=== PATIENT | male | born 1965 | race Caucasian/White ===

== ENCOUNTER 2017-11-12 14:57 | Emergency (ER) | payer OTHER ==
[~2017-11-12] VITALS: Ht 193 cm; Wt 104.5 kg
[2017-11-12 14:58] VITALS: BP 198/117; PULSE 84; RESP 20; TEMP 98.8; O2SAT 98
[2017-11-12] MEDS ORDERED: TYLE325T PO (17:10)
[2017-11-12] MEDS ORDERED: CLINDAMYCIN 150 MG CAP PO ONE (17:15)
[2017-11-12] MEDS ORDERED: ACETAMINOPHEN/HYDROcodone 325 MG/5 MG TAB PO ONE (17:15)
--- NOTE | 2017-11-12 17:41 | RADRPT ---
EXAM DATE/TIME: 11/12/2017 17:25 [place] COMPARISON: No previous studies available for comparison. INDICATIONS : Right hand, 1st digit pain, foreign body, possible splinter. MEDICAL HISTORY : None. SURGICAL HISTORY : None. ENCOUNTER: Initial ACUITY: 1 day PAIN SCORE: 10/10 LOCATION: Right hand, 1st digit. FINDINGS: Examination of the first digit of the right hand demonstrates no evidence of fracture or dislocation. No radiopaque foreign bodies are seen. There is mild soft tissue swelling and apparent gas with no radiopaque foreign body. CONCLUSION: Soft tissue swelling and small area of apparent gas with no radiopaque foreign body. Milton Stringer MD on November 12, 2017 at 17:38 Board Certified Radiologist. This report was verified electronically.
[2017-11-12] MEDS ORDERED: CIPR-9 PO (17:58)
[2017-11-12] MEDS ORDERED: CLIN300C5 PO (17:58)
[2017-11-12] MEDS ORDERED: NORC5TAB PO (17:59)
--- NOTE | 2017-11-12 17:59 | PD ---
HPI Chief Complaint: Skin Problem Time Seen by Provider: 17:08 Travel History International Travel<30 days: No Contact w/Intl Traveler<30days: No History of Present Illness HPI This is a 51-year-old male here with right thumb pain and swelling after sustaining a puncture wound by a piece of wood 6 days ago. It was a board of pressure-treated wood. He reports the area has become increasingly more painful and swollen prompting his visit today. No fever chills. No paresthesias or weakness of the digit. He has full range of motion. He reports he pulled out 2 linear pieces of wood from his thumb. He does not believe that there is a retained foreign body. The severity is moderate. No aggravating or alleviating factors. PFSH Past Medical History Medical History: Denies Significant Hx Social History Tobacco Use: No Allergies-Medications (Allergen,Severity, Reaction): Coded Allergies: No Known Allergies (Verified Allergy, Unknown, 11/12/17) Reported Meds & Prescriptions Reported Meds & Active Scripts Active Woodbridge (Hydrocodone-Acetaminophen) 5 Mg-325 Mg Tab 1 Tab PO Q6H PRN Cipro (Ciprofloxacin HCl) 500 Mg Tab 500 Mg PO BID 10 Days Clindamycin (Clindamycin HCl) 300 Mg Cap 300 Mg PO Q6H Reported Tylenol (Acetaminophen) 325 Mg Tab 325 Mg PO ONCE Review of Systems Except as stated in HPI: all other systems reviewed are Neg General / Constitutional: No: Fever Physical Exam Narrative GENERAL: Alert and well-appearing 51-year-old male SKIN: Warm and dry. HEAD: Normocephalic. EYES: No injection or drainage. NECK: Supple CARDIOVASCULAR: Regular rate and rhythm RESPIRATORY: Breath sounds equal bilaterally. No accessory muscle use. MUSCULOSKELETAL: No cyanosis. Right thumb: Distal aspect of the thumb appears swollen. 2 puncture wounds noted to the finger pad at the distal aspect. The most distal puncture wound has small scab with what appears to be purulent drainage underneath. Patient has full range of motion of thumb. The swelling and erythema is isolated to the distal aspect of the thumb exclusively. Normal sensation. Brisk cap refill. Data Data Last Documented VS Vital Signs Date Time Temp Pulse Resp B/P (MAP) Pulse Ox O2 Delivery O2 Flow Rate FiO2 11/12/17 18:27 16 11/12/17 14:58 98.8 84 198/117 (144) 98 Room Air Orders Orders Finger ([id number]) (11/12/17 ) Clindamycin (Cleocin) (11/12/17 17:15) Acetamin-Hydrocod 325-5 Mg ([place] 5-325 (11/12/17 17:15) Ed Discharge Order (11/12/17 18:01) MDM Medical Decision Making Medical Screen Exam Complete: Yes Emergency Medical Condition: Yes Interpretation(s) X-ray of right thumb: No evidence of osteomyelitis. No radiopaque foreign body. Possible gas (the area of supposed gas is superficial at the site of the incision I made to remove the splinter, I do not believe this is true gas. This is air from the incision I made) Differential Diagnosis Soft tissue foreign Body, felon, cellulitis Narrative Course This is a 51-year-old male here with right thumb pain and swelling after sustaining a puncture wound by a piece of wood 6 days ago. He reports the area has become increasingly more painful and swollen prompting his visit today. No fever chills. He reports he pulled out 2 linear pieces of wood from a pressure- treated board he was working with. He does not believe that there is a retained foreign body. On exam he has 2 puncture wounds. An area on the distal aspect of the thumb had small amount of fluctuant with a central scab. Incision and drainage performed. Small particle of wood fragment removed with a small amount of drainage. X-ray was obtained that showed possible gas formation although the area where gas is seen in the soft tissue is the site of the incision and is superficial. I do not suspect this is true gas. This is air from where I incised and explored the wound for foreign body. She will be put on both clindamycin and Cipro. He is referred to on-call hand surgeon Dr. Faith for follow-up tomorrow. He was instructed to return if he cannot be seen by her or if he develops new or worsening symptoms. Procedures Procedure Narrative INCISION AND DRAINAGE OF ABSCESS: The area was prepped and was sterilely draped. A subcutaneous wheal of 1 % Xylocaine was used to anesthetize the area properly. A number [11] scalpel was used to make a [2] -mm incision across the area of the abscess. The abscess was drained. Small fragment of wood particle removed. Sterile dressing placed. Patient tolerated procedure well. The extremity remains neurovascular intact post procedure. Diagnosis Primary Impression: Puncture wound of right hand with infection Qualified Codes: S61.431A - Puncture wound without foreign body of right hand , initial encounter; L08.9 - Local infection of the skin and subcutaneous tissue , unspecified Referrals: Zuleyka Faith MD Additional Instructions: Antibiotics as prescribed. Pain medication as needed. Epson salt soaks several times per day. Call to make a follow-up appointment with Dr. Faith hand surgeon tomorrow. If you are unable to be seen for recheck return to the ER. Return prior if he have new or worsening symptoms Scripts Hydrocodone-Acetaminophen (Wood[place]) 5 Mg-325 Mg Tab 1 TAB PO Q6H Y for PAIN, #10 TAB 0 Refills Prov: Lexii Longoria 11/12/17 Ciprofloxacin (Cipro) 500 Mg Tab 500 MG PO BID for Infection for 10 Days, #20 TAB 0 Refills Prov: Lexii Longoria 11/12/17 Clindamycin (Clindamycin) 300 Mg Cap 300 MG PO Q6H for Infection, #10 CAP 0 Refills Prov: Lexii Longoria 11/12/17 Disposition: 01 DISCHARGE HOME Condition: Stable Lexii Longoria Nov 12, 2017 17:59
[2017-11-12 18:27] VITALS: RESP 16
[2017-11-13] MEDS ORDERED: CLIN300C5 PO (12:21)
== END 2017-11-12 18:27 | disposition home or self-care (01) ==
LOC: NEPK 14:57
DX: S61.431A Puncture wound without foreign body of right hand, initial encounter (principal); L08.9 Local infection of the skin and subcutaneous tissue, unspecified; W45.8XXA Other foreign body or object entering through skin, initial encounter
CPT/HCPCS: 10060; 73140

== ENCOUNTER 2017-11-13 11:58 | Emergency (ER) | payer OTHER ==
[~2017-11-13] VITALS: Ht 193 cm; Wt 104.5 kg
[~2017-11-13 11:58] MED LIST: CIPR-9 PO; CLIN300C5 PO; NORC5TAB PO; TYLE325T PO
[2017-11-13 11:59] VITALS: BP 150/103; PULSE 81; RESP 15; TEMP 98; O2SAT 98
--- NOTE | 2017-11-13 12:20 | PD ---
HPI Chief Complaint: Wound/Suture/Staple Re-Check Time Seen by Provider: 12:14 Travel History International Travel<30 days: No Contact w/Intl Traveler<30days: No Traveled to known affect area: No History of Present Illness HPI 51-year-old male presents as instructed for wound recheck. He is right-hand dominant. He reports that 1 week ago he sustained a puncture wound on the finger pad of the right thumb secondary to splinter. He reports that he pulled out 2 pieces of wood from his thumb at that time. He developed increasing pain and swelling and was seen here yesterday. He was found to have a puncture wound to the right thumb with infection. It appears that incision and drainage was performed and additional fragments of wood were removed by the provider yesterday. He was started on ciprofloxacin and clindamycin and recommended follow-up today with a hand surgeon. Because he was unable to get an appointment today he presents here for recheck as instructed. He reports that his symptoms are about the same, throbbing pain to the right finger pad, aggravated by palpation, somewhat alleviated with pain medication. Treatment was only started yesterday evening. He has no other complaints at this time. [facility] Social History Tobacco Use: No Allergies-Medications (Allergen,Severity, Reaction): Coded Allergies: No Known Allergies (Verified Allergy, Unknown, 11/12/17) Reported Meds & Prescriptions Reported Meds & Active Scripts Active Clindamycin (Clindamycin HCl) 300 Mg Cap 300 Mg PO Q6H Paradox (Hydrocodone-Acetaminophen) 5 Mg-325 Mg Tab 1 Tab PO Q6H PRN Cipro (Ciprofloxacin HCl) 500 Mg Tab 500 Mg PO BID 10 Days Clindamycin (Clindamycin HCl) 300 Mg Cap 300 Mg PO Q6H Review of Systems General / Constitutional: No: Fever, Chills Musculoskeletal: Positive: Pain Skin: Positive Other (puncture wound, incision, pain) Physical Exam Narrative GENERAL: Well-developed well-nourished male in no acute distress SKIN: Warm and dry. Small puncture wounds/incision noted on the finger pad of the right thumb. With palpation a small amount of bloody purulent drainage was able to be expressed for wound culture. MUSCULOSKELETAL: Skin as noted above with associated erythema and induration to the finger pad of the right thumb. There is no tenderness to palpation along the flexor tendon sheath of the right thumb. Patient maintains full range of motion at the MCP and PI joints. No palpable foreign bodies. Data Data Last Documented VS Vital Signs Date Time Temp Pulse Resp B/P (MAP) Pulse Ox O2 Delivery O2 Flow Rate FiO2 11/13/17 12:32 11/13/17 11:59 98.0 81 15 98 Orders Orders Ed Discharge Order (11/13/17 12:14) Wound Fungus Culture And Stain (11/13/17 12:14) MDM Medical Decision Making Medical Screen Exam Complete: Yes Emergency Medical Condition: Yes Medical Record Reviewed: Yes Differential Diagnosis Wound recheck, retained foreign body, felon status post incision and drainage, tenosynovitis Narrative Course 51-year-old male who is status post incision and drainage foreign body removal of right thumb pad infection yesterday evening presents today as instructed for wound recheck. No wound culture was performed yesterday and therefore one will be performed today. It appears that he was given a ten-day course of ciprofloxacin but, likely inadvertently, only given a prescription for 10 tablets of clindamycin. This is likely meant to be a ten-day course of clindamycin and he will be given a prescription for the remaining balance of tablets pending culture results. As his treatment only began yesterday evening it is not unusual that there has been no symptom improvement at this point in time. It would also be reasonable without this patient follow-up early next week with a hand specialist as if his symptoms linger do not resolve then he may require more thorough wound exploration. Discussed signs and symptoms noted warrant returning to the emergency room such as increasing pain, fevers, swelling, and he verbalizes understanding. He will be given the name of another local hand surgeon that he can try to make an appointment with. Diagnosis Primary Impression: Puncture wound of right hand with infection Referrals: Indra Pandya MD Additional Instructions: Warm compresses or warm soaks several times a day 15 minutes at a time. Take antibiotics as prescribed. Follow up with a hand specialist such as Dr. Faith or Dr. Pandya in 3-4 days. Return for any acutely new or worsening symptoms such as increasing swelling, red streaks up the hand, fevers. Med/Other Pt SpecificInfo: Prescription(s) given Scripts Clindamycin (Clindamycin) 300 Mg Cap 300 MG PO Q6H for Infection, #30 CAP 0 Refills Prov: Siomara Clayton MD 11/13/17 Disposition: 01 DISCHARGE HOME Condition: Stable Peng Hodges Nov 13, 2017 12:20
[2017-11-13] MEDS ORDERED: CLIN300C5 PO (12:21)
== END 2017-11-13 12:32 | disposition home or self-care (01) ==
LOC: NEPK 11:58
DX: S61.031D Puncture wound without foreign body of right thumb without damage to nail, subsequent encounter (principal); L08.9 Local infection of the skin and subcutaneous tissue, unspecified; X58.XXXD Exposure to other specified factors, subsequent encounter
CPT/HCPCS: 86403; 87070; 87205; 99283